=== PATIENT | male | born 1945 | race Caucasian/White ===

== ENCOUNTER 2016-09-18 14:23 | Emergency (ER) | payer MEDICARE ==
[~2016-09-18 14:23] MED LIST: ALDACTONE50 MG PO; ANTIFUNGAL15 GM TOP; ATORVASTATIN CA10 MG PO; ATROVENT HFA12.9 GM INH; BACTROBAN15 GM TOP; BUPAP 50 MG-301 EACH PO; CARBIDOPA-LEVO1 EAC1 PO; CHILDRENS CHEWA81 MG PO; COLACE100 MG PO; COMBIVENT RESPIM4 GM INH; FLOMAX0.4 MG PO; FUROSEMIDE40 MG PO; HYDROCODON-ACE1 EAC2 PO; HYDROCODON-ACE1 EAC6 PO; K-TAB ER10 MEQ PO; LASIX40 MG PO; LASIX80 MG PO; LIPITOR10 MG PO; METOLAZONE PO; METOLAZONE5 MG PO; NASONEX17 GM; NASONEX17 GM NS; NYSTOP60 GM TP; PANTOPRAZOLE SO40 MG PO; PEPCID20 MG PO; POTASSIUM CHLO10 ME1 PO; PREDNISONE10 MG PO; REQUIP5 MG PO; SENSI CARE PET113 GM TP; TOPAMAX25 MG PO; ZITHROMAX500 MG PO
== END 2016-09-22 12:47 | disposition other institution (70) ==
LOC: ER 14:23
DX: I50.9 Heart failure, unspecified (principal); J44.9 Chronic obstructive pulmonary disease, unspecified; R06.02 Shortness of breath; I87.8 Other specified disorders of veins; R60.0 Localized edema; E78.5 Hyperlipidemia, unspecified; G20 Parkinson's disease; Z79.899 Other long term (current) drug therapy
CPT/HCPCS: 99285-25

== ENCOUNTER 2016-09-18 14:23 | Inpatient (IN) | payer MEDICARE ==
[~2016-09-18] VITALS: Ht 154.9 cm; Wt 103.0 kg
[2016-09-18 14:59] LABS: BASO % 0.4 % (0.2-1.2); EOS # 1.1 10_X3_uL (0.0-0.5); EOS % 14.9 % (0.8-7.0); GRAN # 4.2 10_X3_uL (1.8-5.4); GRAN % 57.1 % (34.0-67.9); HEMATOCRIT 26.4 % (40-51); HEMOGLOBIN 8.6 g/dL (13.7-17.5); LYMPH # 1.4 10_X3_uL (1.3-3.6); LYMPH % 18.8 % (21.8-53.1); MEAN CORPUSCULAR HEMOGLOBIN 34.8 pg (27.0-33.0); MEAN CORPUSCULAR HGB CONC 32.6 g/dL (32.0-36.0); MEAN CORPUSCULAR VOLUME 106.9 fL (79-92); MEAN PLATELET VOLUME 9.7 fl (7.5-11.5); MONO # 0.7 10_X3_uL (0.3-0.8); MONO % 8.8 % (5.3-12.2); PLATELET COUNT 224 x10_3/uL (163-337); RED BLOOD COUNT 2.47 x10_6/uL (4.6-6.1); RED CELL DISTRIBUTION WIDTH 13.9 % (11.6-14.4); WHITE BLOOD COUNT 7.4 x10_3/uL (4.2-9.1)
[2016-09-18 15:17] LABS: ALBUMIN 3.3 gm/dL (3.4-5.0); ALKALINE PHOSPHATASE 87 U/L (50-136); ALT/SGPT < 5 U/L (7.53-40.17); AST/SGOT 7 U/L (6.66-35.34); BILIRUBIN,TOTAL 0.32 mg/dL (0.0-1.0); BLOOD UREA NITROGEN 43 mg/dL (7-18); CALCIUM 6.8 mg/dL (8.7-10.7); CARBON DIOXIDE 25 mmol/L (21-32); CREATINE KINASE 64 U/L (35-232); CREATININE 1.3 mg/dL (0.6-1.3); GLUCOSE,RANDOM 102 mg/dL (70-99); POTASSIUM 3.4 mmol/L (3.5-5.1); SODIUM 142 mmol/L (136-145); TOTAL PROTEIN 5.9 gm/dL (6.4-8.2)
[2016-09-18 15:29] LABS: INR 1.1 (0.9-1.1); PARTIAL THROMBOPLASTIN TIME 28.7 SECONDS (21.3-29.3)
[2016-09-19 06:23] LABS: HEMATOCRIT 24.1 % (40-51); MEAN CORPUSCULAR HGB CONC 33.2 g/dL (32.0-36.0); MEAN CORPUSCULAR VOLUME 104.8 fL (79-92); RED BLOOD COUNT 2.3 x10_6/uL (4.6-6.1); RED CELL DISTRIBUTION WIDTH 13.4 % (11.6-14.4); WHITE BLOOD COUNT 4.5 x10_3/uL (4.2-9.1)
[2016-09-19 06:26] LABS: MEAN CORPUSCULAR HEMOGLOBIN 34.7 pg (27.0-33.0)
[2016-09-19 06:32] LABS: BLOOD UREA NITROGEN 36 mg/dL (7-18); CALCIUM 6.7 mg/dL (8.7-10.7); CARBON DIOXIDE 25 mmol/L (21-32); GLUCOSE,RANDOM 152 mg/dL (70-99); SODIUM 144 mmol/L (136-145)
[2016-09-19 06:56] LABS: POTASSIUM 2.7 mmol/L (3.5-5.1)
[2016-09-19 15:30] LABS: HEMATOCRIT 28.7 % (40-51); HEMOGLOBIN 9.5 g/dL (13.7-17.5)
[2016-09-20 06:48] LABS: GRAN # 4.1 10_X3_uL (1.8-5.4); GRAN % 77.3 % (34.0-67.9); HEMATOCRIT 29.7 % (40-51); HEMOGLOBIN 9.7 g/dL (13.7-17.5); LYMPH # 0.9 10_X3_uL (1.3-3.6); LYMPH % 16.5 % (21.8-53.1); MEAN CORPUSCULAR HEMOGLOBIN 33.4 pg (27.0-33.0); MEAN CORPUSCULAR HGB CONC 32.7 g/dL (32.0-36.0); MEAN CORPUSCULAR VOLUME 102.4 fL (79-92); MEAN PLATELET VOLUME 10.5 fl (7.5-11.5); MONO # 0.3 10_X3_uL (0.3-0.8); MONO % 6.2 % (5.3-12.2); PLATELET COUNT 260 x10_3/uL (163-337); RED CELL DISTRIBUTION WIDTH 15.3 % (11.6-14.4); WHITE BLOOD COUNT 5.3 x10_3/uL (4.2-9.1)
[2016-09-20 06:59] LABS: ALBUMIN 3.2 gm/dL (3.4-5.0); ALKALINE PHOSPHATASE 74 U/L (50-136); AST/SGOT 8 U/L (6.66-35.34); BILIRUBIN,TOTAL 0.23 mg/dL (0.0-1.0); BLOOD UREA NITROGEN 35 mg/dL (7-18); CALCIUM 7.3 mg/dL (8.7-10.7); CARBON DIOXIDE 29 mmol/L (21-32); CREATININE 1.1 mg/dL (0.6-1.3); GLUCOSE,RANDOM 148 mg/dL (70-99); SODIUM 147 mmol/L (136-145); TOTAL PROTEIN 6.1 gm/dL (6.4-8.2)
[2016-09-20 07:19] LABS: ALT/SGPT < 5 U/L (7.53-40.17); POTASSIUM 2.9 mmol/L (3.5-5.1)
[2016-09-20 12:30] LABS: BLOOD UREA NITROGEN 35 mg/dL (7-18); CALCIUM 7.3 mg/dL (8.7-10.7); CARBON DIOXIDE 29 mmol/L (21-32); CREATININE 1.2 mg/dL (0.6-1.3); GLUCOSE,RANDOM 194 mg/dL (70-99); POTASSIUM 3.1 mmol/L (3.5-5.1); SODIUM 146 mmol/L (136-145)
[2016-09-20 15:14] LABS: ARTERIAL BLD GAS O2 SATURATION 92.7 % (94-98); ARTERIAL BLOOD GAS BASE EXCESS 10.3 mmol/L (-2.0-3.0); ARTERIAL BLOOD GAS PCO2 48.6 mmHg (35-48); ARTERIAL BLOOD GAS pH 7.47 (7.35-7.45)
[2016-09-20 18:54] LABS: BLOOD UREA NITROGEN 35 mg/dL (7-18); CALCIUM 7.4 mg/dL (8.7-10.7); CARBON DIOXIDE 30 mmol/L (21-32); CREATININE 1.2 mg/dL (0.6-1.3); GLUCOSE,RANDOM 183 mg/dL (70-99); POTASSIUM 3.2 mmol/L (3.5-5.1); SODIUM 147 mmol/L (136-145)
[2016-09-20 20:23] LABS: CKMB < 1.0 ng/ml (0.0-5.0); TROP-I < 0.30 NG/ML (0.00-0.30)
[2016-09-21 06:56] LABS: HEMATOCRIT 30.7 % (40-51); MEAN CORPUSCULAR HEMOGLOBIN 33.6 pg (27.0-33.0); MEAN CORPUSCULAR HGB CONC 32.6 g/dL (32.0-36.0); MEAN PLATELET VOLUME 10.3 fl (7.5-11.5); RED BLOOD COUNT 2.98 x10_6/uL (4.6-6.1); RED CELL DISTRIBUTION WIDTH 14.9 % (11.6-14.4); WHITE BLOOD COUNT 6.3 x10_3/uL (4.2-9.1)
[2016-09-21 07:12] LABS: CALCIUM 7.6 mg/dL (8.7-10.7); CREATININE 1.3 mg/dL (0.6-1.3); MAGNESIUM 2.1 mg/dL (1.8-2.4); POTASSIUM 3.8 mmol/L (3.5-5.1)
[2016-09-22 07:18] LABS: HEMOGLOBIN 10.6 g/dL (13.7-17.5); MEAN CORPUSCULAR HEMOGLOBIN 33.4 pg (27.0-33.0); MEAN CORPUSCULAR HGB CONC 32.1 g/dL (32.0-36.0); MEAN CORPUSCULAR VOLUME 104.1 fL (79-92); MEAN PLATELET VOLUME 10.1 fl (7.5-11.5); RED BLOOD COUNT 3.17 x10_6/uL (4.6-6.1); RED CELL DISTRIBUTION WIDTH 14.2 % (11.6-14.4); WHITE BLOOD COUNT 8.4 x10_3/uL (4.2-9.1)
[2016-09-22 07:27] LABS: BLOOD UREA NITROGEN 33 mg/dL (7-18); CALCIUM 8.2 mg/dL (8.7-10.7); CARBON DIOXIDE 38 mmol/L (21-32); CREATININE 1.1 mg/dL (0.6-1.3); GLUCOSE,RANDOM 104 mg/dL (70-99); SODIUM 141 mmol/L (136-145)
[2016-09-22 08:57] LABS: ARTERIAL BLOOD GAS HCO3 42.7 mmol/L (22-26); ARTERIAL BLOOD GAS PCO2 53.6 mmHg (35-48); ARTERIAL BLOOD GAS pH 7.51 (7.35-7.45)
[2016-09-22 10:16] LABS: CKMB 1.1 ng/ml (0.0-5.0)
[2016-09-22 10:17] LABS: TROP-I < 0.30 NG/ML (0.00-0.30)
== END 2016-09-22 12:47 | disposition short-term general hospital (02) | DRG 189 ==
LOC: ER 14:23 → MS 19:55 → UNDODEPER 09-21 20:19 → MS 09-22 12:47
PROVIDERS: Emergency Medicine; Family Medicine; ADMIT Family Medicine
PROC: 30260N1 (ICD-10-PCS; principal; 2016-09-19)
DX: J96.01 Acute respiratory failure with hypoxia (principal); J69.0 Pneumonitis due to inhalation of food and vomit; I50.23 Acute on chronic systolic (congestive) heart failure; J44.0 Chronic obstructive pulmonary disease with (acute) lower respiratory infection; J44.1 Chronic obstructive pulmonary disease with (acute) exacerbation; J98.11 Atelectasis; E87.6 Hypokalemia; E87.70 Fluid overload, unspecified; G20 Parkinson's disease; R53.1 Weakness; R11.2 Nausea with vomiting, unspecified; R19.7 Diarrhea, unspecified; D64.9 Anemia, unspecified; E78.5 Hyperlipidemia, unspecified; E83.42 Hypomagnesemia; L89.152 Pressure ulcer of sacral region, stage 2; R60.0 Localized edema; Z79.899 Other long term (current) drug therapy; Z79.82 Long term (current) use of aspirin; Z83.3 Family history of diabetes mellitus; Z80.9 Family history of malignant neoplasm, unspecified
CPT/HCPCS: 36415; 36430; 36600; 71010; 71250; 80048; 80053; 82550; 82553; 82803; 83605; 83735; 83880; 85014; 85025; 85610; 85730; 86850; 86900; 86901; 86920; 87040; 87045; 87070; 87324; 93005; 93041; 93306; 94640; 94664; 96365; 96367; 96375; 99070; 99285-25; J2930; J7040; J7050; P9016; Q0169

== ENCOUNTER 2016-12-13 17:21 | Emergency (ER) | payer OTHER, MEDICARE ==
[2016-12-13 18:00] LABS: BASO % 0.1 % (0.2-1.2); EOS # 0.1 10_X3_uL (0.0-0.5); EOS % 0.6 % (0.8-7.0); GRAN # 7.6 10_X3_uL (1.8-5.4); GRAN % 73.9 % (34.0-67.9); HEMATOCRIT 29.1 % (40-51); LYMPH # 1.3 10_X3_uL (1.3-3.6); LYMPH % 12.8 % (21.8-53.1); MEAN CORPUSCULAR HGB CONC 30.9 g/dL (32.0-36.0); MEAN CORPUSCULAR VOLUME 103.6 fL (79-92); MEAN PLATELET VOLUME 9.5 fl (7.5-11.5); MONO # 1.3 10_X3_uL (0.3-0.8); MONO % 12.6 % (5.3-12.2); PLATELET COUNT 259 x10_3/uL (163-337); RED BLOOD COUNT 2.81 x10_6/uL (4.6-6.1); RED CELL DISTRIBUTION WIDTH 12.6 % (11.6-14.4); WHITE BLOOD COUNT 10.2 x10_3/uL (4.2-9.1)
[2016-12-13 18:13] LABS: ALBUMIN 3.7 gm/dL (3.4-5.0); ALKALINE PHOSPHATASE 63 U/L (50-136); AST/SGOT 6 U/L (6.66-35.34); BILIRUBIN,TOTAL 0.45 mg/dL (0.0-1.0); CALCIUM 8.2 mg/dL (8.7-10.7); CARBON DIOXIDE 17 mmol/L (21-32); CREATINE KINASE 112 U/L (35-232); CREATININE 3.5 mg/dL (0.6-1.3); GLUCOSE,RANDOM 94 mg/dL (70-99); POTASSIUM 4.9 mmol/L (3.5-5.1); SODIUM 140 mmol/L (136-145); TOTAL PROTEIN 6.5 gm/dL (6.4-8.2)
[2016-12-13 18:42] LABS: ALT/SGPT < 5 U/L (7.53-40.17); BLOOD UREA NITROGEN 52 mg/dL (7-18)
== END 2016-12-13 20:05 | disposition short-term general hospital (02) ==
LOC: ER 17:21
PROVIDERS: Internal Medicine
DX: I50.9 Heart failure, unspecified (principal); N28.9 Disorder of kidney and ureter, unspecified; G20 Parkinson's disease; R05 Cough; Z91.041 Radiographic dye allergy status
CPT/HCPCS: 36415; 71010; 80053; 82550; 82553; 83605; 83880; 85025; 87040; 93005; 94664; 96374; 96376; 99070; 99283; 99285-25